=== PATIENT | female | born 1995 | race Caucasian/White ===

== ENCOUNTER 2016-09-21 07:51 | Emergency (ER) ==
[2016-09-21 08:00] VITALS: BP 127/86
--- NOTE | 2016-09-21 08:27 | ER Document Report ---
ED Psych Disorder / Suicide - General Chief Complaint: Anxiety Stated Complaint: ANXIETY Time Seen by Provider: 09/21/16 08:12 Mode of Arrival: Ambulatory Information source: Patient Notes: Patient is a 21 year old female who presents to the ED with complaints of anxiety. Patient is currently 5 weeks and states her left her and her anxiety has since worsened. Patient also states she is nauseous. TRAVEL OUTSIDE OF THE [place] IN LAST 30 DAYS: No - HPI Patient complains to provider of: Other - anxiety Associated symptoms: Other - see above Past Medical History - General Information source: Patient - Social History Patient has suicidal ideation: No Patient has homicidal ideation: No Renal/ Medical History: Denies: Hx Peritoneal Dialysis Review of Systems - Review of Systems Constitutional: No symptoms reported EENT: No symptoms reported Cardiovascular: No symptoms reported Respiratory: No symptoms reported Gastrointestinal: No symptoms reported Genitourinary: No symptoms reported Female Genitourinary: See HPI, Musculoskeletal: No symptoms reported Skin: No symptoms reported Hematologic/Lymphatic: No symptoms reported Neurological/Psychological: See HPI, Anxiety Physical Exam - Vital signs Vitals: Temp Pulse Resp BP Pulse Ox 98.1 F 85 19 127/86 H 98 09/21/16 07:55 09/21/16 07:55 09/21/16 07:55 09/21/16 07:55 09/21/16 07:55 - General General appearance: Appears well, Alert In distress: None - HEENT Head: Normocephalic, Atraumatic Eyes: Normal Extraocular movements intact: Yes Pupils: PERRL - Respiratory Respiratory status: No respiratory distress Breath sounds: Normal - Cardiovascular Rhythm: Regular Heart sounds: Normal auscultation Murmur: No - Abdominal Inspection: Normal Distension: No distension Tenderness: Nontender - Back Back: Normal - Extremities General upper extremity: Normal inspection, Normal ROM General lower extremity: Normal inspection, Normal ROM - Neurological Neuro grossly intact: Yes - Psychological Associated symptoms: Normal affect, Normal mood - Skin Skin Temperature: Warm Skin Moisture: Dry Skin Color: Normal Course - Vital Signs Vital signs: Temp Pulse Resp BP Pulse Ox 98.1 F 85 19 127/86 H 98 09/21/16 07:55 09/21/16 07:55 09/21/16 07:55 09/21/16 07:55 09/21/16 07:55 Discharge - Discharge Instructions: Anxiety ([facility]) Scribe Documentation - Scribe Written by Scribe:: khloe Simms, 09/21/2016, 08 acting as scribe for :: Ilir
== END 2016-09-21 08:27 | disposition left against medical advice (07) ==
LOC: ER 07:51
DX: Z53.9 Procedure and treatment not carried out, unspecified reason (principal); F41.9 Anxiety disorder, unspecified

== ENCOUNTER 2016-09-21 13:46 | Emergency (ER) | payer OTHER ==
[2016-09-21 14:09] VITALS: BP 118/77
--- NOTE | 2016-09-21 14:28 | ER Document Report ---
ED Medical Screen (RME) - General Chief Complaint: Anxiety Stated Complaint: ABDOMINAL PAIN Time Seen by Provider: 09/21/16 14:25 Notes: Patient has multiple complaints shaking, unable to sleep, anxiety, and abdominal pain, primarily in the epigastric region of her abdomen for several days. She has been seen on 3 visits to [facility] in just the last 3 days. During that time, she was diagnosed with a UTI and put on nitrofurantoin and also provided with antinausea medicine for nausea and vomiting. She denies any fever. Had some diarrhea yesterday. Does not have any UTI symptoms such as burning or stinging or blood in urine. Patient says all of this is stressing her and she at times begins to cry. She is here with her nearly 3-month-old child and is weeks now. Denies any vaginal bleeding. Patient does not take any regular prescription medicines other than those that were prescribed at the [facility] over the past 3 days. Patient was here in this emergency department early this morning, but left without being seen to go to the [facility] for further evaluation. TRAVEL OUTSIDE OF THE [place] IN LAST 30 DAYS: No Past Medical History Renal/ Medical History: Denies: Hx Peritoneal Dialysis Physical Exam - Vital signs Vitals: Temp Pulse Resp BP Pulse Ox 98.7 F 94 13 118/77 100 09/21/16 14:07 09/21/16 14:07 09/21/16 14:07 09/21/16 14:07 09/21/16 14:07 Course - Vital Signs Vital signs: Temp Pulse Resp BP Pulse Ox 98.7 F 94 13 118/77 100 09/21/16 14:07 09/21/16 14:07 09/21/16 14:07 09/21/16 14:07 09/21/16 14:07 Doctor's Discharge - Discharge Instructions: Anxiety ([facility])
--- NOTE | 2016-09-21 15:12 | ER Document Report ---
ED General - General Chief Complaint: Anxiety Stated Complaint: ABDOMINAL PAIN Time Seen by Provider: 09/21/16 14:25 Mode of Arrival: Ambulatory Information source: Patient Notes: 21-year-old female who is approximately 5 weeks presents with complaints of anxiety shakiness decreased appetite due to stress with her being away as well as because she is going to quit her job. Patient notes for the past 3 days in a row she has been at who has had lab work and has been discharged home. Patient arrived here in the morning did not wait to be seen and then came back again. TRAVEL OUTSIDE OF THE [place] IN LAST 30 DAYS: No - HPI Onset: Last week Onset/Duration: Persistent Quality of pain: Achy Severity: Mild Pain Level: 1 Associated symptoms: Other Exacerbated by: Denies Relieved by: Denies Similar symptoms previously: Yes Recently seen / treated by doctor: Yes Past Medical History - Social History Smoking Status: Never Smoker Cigarette use (# per day): No Chew tobacco use (# tins/day): No Smoking Education Provided: No Frequency of alcohol use: None Drug Abuse: None Family History: Reviewed & Not Pertinent Patient has suicidal ideation: No Patient has homicidal ideation: No Renal/ Medical History: Denies: Hx Peritoneal Dialysis Review of Systems - Review of Systems Notes: REVIEW OF SYSTEMS: CONSTITUTIONAL : Denies fever, chills, or sweats. Denies recent illness. EENT: Denies eye, ear, throat, or mouth pain or symptoms. Denies nasal or sinus congestion or discharge. Denies throat, tongue, or mouth swelling or difficulty swallowing. CARDIOVASCULAR: Denies chest pain. Denies palpitations or racing or irregular heart beat. Denies ankle edema. RESPIRATORY: Denies cough, cold, or chest congestion. Denies shortness of breath, difficulty breathing, or wheezing. GASTROINTESTINAL: Admits to intermittent abdominal pain GENITOURINARY: Denies difficulty urinating, painful urination, burning, frequency, blood in urine, or discharge. FEMALE GENITOURINARY: Denies vaginal bleeding, heavy or abnormal periods, irregular periods. Denies vaginal discharge or odor. MUSCULOSKELETAL: Denies back or neck pain or stiffness. Denies joint pain or swelling. SKIN: Denies rash, lesions or sores. HEMATOLOGIC : Denies easy bruising or bleeding. LYMPHATIC: Denies swollen, enlarged glands. NEUROLOGICAL: Denies confusion or altered mental status. Denies passing out or loss of consciousness. Denies dizziness or lightheadedness. Denies headache. Denies weakness or paralysis or loss of use of either side. Denies problems with gait or speech. Denies sensory loss, numbness, or tingling. Denies seizures. PSYCHIATRIC: Admits to anxiety decreased appetite ALL OTHER SYSTEMS REVIEWED AND NEGATIVE. PHYSICAL EXAMINATION: GENERAL: Well-appearing, well-nourished and in no acute distress. HEAD: Atraumatic, normocephalic. EYES: Pupils equal round and reactive to light, extraocular movements intact, conjunctiva are normal. ENT: Nares patent, oropharynx clear without exudates. Moist mucous membranes. NECK: Normal range of motion, supple without lymphadenopathy LUNGS: Breath sounds clear to auscultation bilaterally and equal. No wheezes rales or rhonchi. HEART: Regular rate and rhythm without murmurs ABDOMEN: Soft, nontender, nondistended abdomen. No guarding, no rebound. No masses appreciated. Female : deferred Musculoskeletal: Normal range of motion, no pitting or edema. No cyanosis. NEUROLOGICAL: Cranial nerves grossly intact. Normal speech, normal gait. Normal sensory, motor exams PSYCH: Patient is tearful anxious SKIN: Warm, Dry, normal turgor, no rashes or lesions noted. Dictation was performed using [employer] voice recognition software Physical Exam - Vital signs Vitals: Temp Pulse Resp BP Pulse Ox 98.7 F 94 13 118/77 100 09/21/16 14:07 09/21/16 14:07 09/21/16 14:07 09/21/16 14:07 09/21/16 14:07 Course - Re-evaluation Re-evalutation: 09/21/16 15:12 [facility] has been asked for consult 09/21/16 15:40 Patient wishes to leave AGAINST MEDICAL ADVICE, this would be the fifth facility she is seen in 3 days [facility] did evaluate the patient I am awaiting their feedback and lab work results but patient states she cannot stay any further After performing a Medical Screening Examination, I spoke with the patient at length in regards to leaving the hospital against medical advice. I do not believe the patient should leave but the patient is alert oriented x4, understands the risks and benefits of staying and leaving including disability and . Pt understands that she can return at any time for further care and is more than welcome to do so. Pt verbalizes this understanding. - Vital Signs Vital signs: Temp Pulse Resp BP Pulse Ox 98.7 F 94 13 118/77 100 09/21/16 14:07 09/21/16 14:07 09/21/16 14:07 09/21/16 14:07 09/21/16 14:07 - Laboratory Result Diagrams: 09/21/16 14:35 09/21/16 14:35 Discharge - Discharge Clinical Impression: Anxiety, Abdominal pain affecting Condition: Stable Disposition: AGAINST MEDICAL ADVICE Instructions: Anxiety ([facility]) Additional Instructions: Please return immediately if there are any other concerns
[2016-09-21 16:03] LABS: APPEARANCE,URINE SLIGHTLY-CLOUDY; BILIRUBIN,URINE NEGATIVE (NEGATIVE); GLUCOSE, URINE NEGATIVE (NEGATIVE); KETONES,URINE 80 mg/dL (NEGATIVE); LEUKOCYTE ESTERASE,URINE NEGATIVE (NEGATIVE); NITRITE,URINE NEGATIVE (NEGATIVE); PROTEIN,URINE NEGATIVE (NEGATIVE); URINE SPECIFIC GRAVITY 1.013; UROBILINOGEN,URINE NEGATIVE mg/dL (<2.0)
[2016-09-21 16:07] LABS: ABSOLUTE LYMPHOCYTES (AUTO) 0.8 10^3/uL (0.5-4.7); ABSOLUTE MONOCYTES (AUTO) 0.5 10^3/uL (0.1-1.4); BASOPHILS % (AUTO) 0.3 % (0-2); HEMATOCRIT 38.9 % (36.0-47.0); HEMOGLOBIN 13.4 g/dL (12.0-15.5); HGB HCT DIFFERENCE 1.3; LYMPHOCYTES % (AUTO) 22.9 % (13-45); MEAN CORPUSCULAR HEMOGLOBIN 32.8 pg (27.0-33.4); MEAN CORPUSCULAR HGB CONC 34.3 g/dL (32.0-36.0); MEAN CORPUSCULAR VOLUME 96 fl (80-97); MONOCYTES % (AUTO) 15.3 % (3-13); RED BLOOD COUNT 4.08 10^6/uL (3.72-5.28); RED CELL DISTRIBUTION WIDTH 13.3 % (11.5-14.0); SEGMENTED NEUTROPHILS % (AUTO) 61.5 % (42-78); WHITE BLOOD COUNT 3.3 10^3/uL (4.0-10.5)
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
[2016-09-21 16:27] LABS: ALANINE AMINOTRANSFERASE 25 U/L (9-52); ALBUMIN 4.3 g/dL (3.5-5.0); ALKALINE PHOSPHATASE 53 U/L (38-126); ANION GAP 12 (5-19); ASPARTATE AMINO TRANSFERASE 21 U/L (14-36); BILIRUBIN,DIRECT 0.3 mg/dL (0.0-0.4); BILIRUBIN,TOTAL 0.4 mg/dL (0.2-1.3); BLOOD UREA NITROGEN 8 mg/dL (7-20); CALCIUM 9.1 mg/dL (8.4-10.2); CARBON DIOXIDE 23 mmol/L (22-30); CHLORIDE 103 mmol/L (98-107); CREATININE RESULT 0.72 mg/dL (0.52-1.25); GLUCOSE 90 mg/dL (75-110); LIPASE 55.5 U/L (23-300); POTASSIUM 3.9 mmol/L (3.6-5.0); SODIUM 138.2 mmol/L (137-145); TOTAL PROTEIN 6.9 g/dL (6.3-8.2)
== END 2016-09-21 15:40 | disposition left against medical advice (07) ==
LOC: ER 13:46
DX: F41.9 Anxiety disorder, unspecified (principal); R10.9 Unspecified abdominal pain; R10.13 Epigastric pain; Z69.11 Encounter for mental health services for victim of spousal or partner abuse; Z33.1 Pregnant state, incidental
CPT/HCPCS: 36415; 80053; 81001; 83690; 85025; 99284

== ENCOUNTER 2016-09-21 16:06 | Emergency (ER) | payer OTHER ==
--- NOTE | 2016-09-21 16:48 | ER Document Report ---
ED General - General Stated Complaint: ANXIETY Time Seen by Provider: 09/21/16 16:23 Mode of Arrival: Ambulatory Information source: Patient Notes: 21 yr old female who is 5 weeks presents with complaints of abd cramping and anxiety. Patient left AGAINST MEDICAL ADVICE less than an hour and a half ago. Her lab work had not resulted at that time. Mental health had already evaluated the patient. TRAVEL OUTSIDE OF THE [place] IN LAST 30 DAYS: No - HPI Onset: Last week Onset/Duration: Persistent Quality of pain: Cramping Severity: Mild Pain Level: 1 Associated symptoms: Other - Shaky anxious Exacerbated by: Denies Relieved by: Denies Similar symptoms previously: Yes Recently seen / treated by doctor: Yes - Related Data Allergies/Adverse Reactions: No Known Allergies Allergy (Verified 09/21/16 17:41) Past Medical History - Social History Smoking Status: Never Smoker Cigarette use (# per day): No Chew tobacco use (# tins/day): No Smoking Education Provided: No Family History: Reviewed & Not Pertinent Renal/ Medical History: Denies: Hx Peritoneal Dialysis Review of Systems - Review of Systems Notes: REVIEW OF SYSTEMS: CONSTITUTIONAL : Denies fever, chills, or sweats. Denies recent illness. EENT: Denies eye, ear, throat, or mouth pain or symptoms. Denies nasal or sinus congestion or discharge. Denies throat, tongue, or mouth swelling or difficulty swallowing. CARDIOVASCULAR: Denies chest pain. Denies palpitations or racing or irregular heart beat. Denies ankle edema. RESPIRATORY: Denies cough, cold, or chest congestion. Denies shortness of breath, difficulty breathing, or wheezing. GASTROINTESTINAL: Admits to abdominal pain GENITOURINARY: Denies difficulty urinating, painful urination, burning, frequency, blood in urine, or discharge. FEMALE GENITOURINARY: Denies vaginal bleeding, heavy or abnormal periods, irregular periods. Denies vaginal discharge or odor. MUSCULOSKELETAL: Denies back or neck pain or stiffness. Denies joint pain or swelling. SKIN: Denies rash, lesions or sores. HEMATOLOGIC : Denies easy bruising or bleeding. LYMPHATIC: Denies swollen, enlarged glands. NEUROLOGICAL: Denies confusion or altered mental status. Denies passing out or loss of consciousness. Denies dizziness or lightheadedness. Denies headache. Denies weakness or paralysis or loss of use of either side. Denies problems with gait or speech. Denies sensory loss, numbness, or tingling. Denies seizures. PSYCHIATRIC: Admits to anxiety ALL OTHER SYSTEMS REVIEWED AND NEGATIVE. PHYSICAL EXAMINATION: GENERAL: Well-appearing, well-nourished and in no acute distress. HEAD: Atraumatic, normocephalic. EYES: Pupils equal round and reactive to light, extraocular movements intact, conjunctiva are normal. ENT: Nares patent, oropharynx clear without exudates. Moist mucous membranes. NECK: Normal range of motion, supple without lymphadenopathy LUNGS: Breath sounds clear to auscultation bilaterally and equal. No wheezes rales or rhonchi. HEART: Regular rate and rhythm without murmurs ABDOMEN: Soft, nontender, nondistended abdomen. No guarding, no rebound. No masses appreciated. Female : deferred Musculoskeletal: Normal range of motion, no pitting or edema. No cyanosis. NEUROLOGICAL: Cranial nerves grossly intact. Normal speech, normal gait. Normal sensory, motor exams PSYCH: Normal mood, normal affect. SKIN: Warm, Dry, normal turgor, no rashes or lesions noted. Dictation was performed using [employer] voice recognition software Physical Exam - Vital signs Vitals: Resp 16 09/21/16 16:15 Course - Re-evaluation Re-evalutation: 09/21/16 19:07 Ultrasound is consistent with a 5 week 3 day , patient otherwise looks well is in no distress. She will be discharged home at this time to follow-up with [facility] patient is very happy with this plan Patient given report of After performing a Medical Screening Examination, I estimate there is LOW risk for ACUTE APPENDICITIS, BOWEL OBSTRUCTION, ACUTE CHOLECYSTITIS, PERFORATED DIVERTICULITIS, INCARCERATED HERNIA, PANCREATITIS, PELVIC INFLAMMATORY DISEASE, PERFORATED ULCER, ECTOPIC , or TUBO-OVARIAN ABSCESS, thus I consider the discharge disposition reasonable. Also, there is no evidence or peritonitis , sepsis, or toxicity. I have reevaluated this patient multiple times and no significant life threatening changes are noted. The patient and I have discussed the diagnosis and risks, and we agree with discharging home with close follow-up with the understanding that symptoms and presentations can change. We also discussed returning to the Emergency Department immediately if new or worsening symptoms occur. We have discussed the symptoms which are most concerning (e.g., bloody stool, fever, changing or worsening pain, vomiting) that necessitate immediate return. - Vital Signs Vital signs: Temp Pulse Resp BP Pulse Ox 98.3 F 74 18 118/70 99 09/21/16 17:34 09/21/16 17:34 09/21/16 17:34 09/21/16 17:34 09/21/16 17:34 - Laboratory Laboratory results interpreted by me: 09/21/16 14:35 Beta HCG, Quant 5720.90 H - Diagnostic Test Radiology reviewed: Image reviewed, Reports reviewed - Report given to patient Discharge - Discharge Clinical Impression: Abdominal pain affecting , Anxiety Condition: Stable Disposition: HOME, SELF-CARE Instructions: Abdominal Pain ([facility]) Referrals: JUANITO OLIVAS MD [Primary Care Provider] - Follow up tomorrow
--- NOTE | 2016-09-21 19:00 | RADIOLOGY REPORT (SQ) ---
EXAM DESCRIPTION: U/S OB TRANSVAGINAL W/O DOP COMPLETED DATE/TIME: 09/21/2016 6:27 pm REASON FOR STUDY: abd pain COMPARISON: None. TECHNIQUE: Transvaginal static and realtime grayscale images acquired of the pelvis. Additional lynette cted spectral and color Doppler images recorded. All images stored on PACs. [id number] LIMITATIONS: None. FINDINGS: FETUS: Living intrauterine . EGA: 5 weeks, 3 days SOREN: 05/21/2017 FHR: Not visualized SUBCHORIONIC BLEED: Yes. SIZE OF BLEED: 0.6 x 1.0 x 0.2 cm UTERUS: No masses. No anomalies. CERVICAL LENGTH: 4.5 cm Closed. RIGHT ADNEXA: Normal ovary with normal vascular flow. Probable corpus luteum. No adnexal free fluid. No adnexal masses. LEFT ADNEXA: Normal ovary with normal vascular flow. No adnexal free fluid. No adnexal masses. FREE FLUID: Scant. OTHER: No other significant finding. IMPRESSION: The appearance of a well-circumscribed fluid collection within the endometrial echo comp felix suggests gestational sac of early intrauterine . Recommend serial beta hCGs and repeat imaging as appropriate. EGA 5 weeks, 3 days Trimester of : First - 0 to 13 weeks. TECHNICAL DOCUMENTATION: JOB ID: [id number]- All Rights Reserved
[2016-09-21 19:11] VITALS: BP 119/73
== END 2016-09-21 19:11 | disposition home or self-care (01) ==
LOC: ER 16:06
DX: F41.9 Anxiety disorder, unspecified (principal); R10.9 Unspecified abdominal pain; Z3A.01 Less than 8 weeks gestation of pregnancy
CPT/HCPCS: 36415; 76817; 84702; 99284